=== PATIENT | male | born 1970 | race Asian ===

== ENCOUNTER 2024-12-07 10:01 | Emergency (ER) | payer OTHER ==
[~2024-12-07] VITALS: Ht 170.2 cm; Wt 78.9 kg
[2024-12-07 10:09] VITALS: TEMP 98.3
[2024-12-07 11:04] VITALS: PULSE 66; RESP 14; O2SAT 98
== END 2024-12-07 11:05 | disposition other institution (70) ==
LOC: FSED 10:07
DX: R47.81 Slurred speech (principal); I63.9 Cerebral infarction, unspecified
CPT/HCPCS: 80048; 84484; 85025; 99284